=== PATIENT | female | born 1990 | race Caucasian/White ===

== ENCOUNTER 2017-11-16 02:54 | Emergency (ER) | payer OTHER ==
[~2017-11-16] VITALS: Ht 160 cm; Wt 61.2 kg
[~2017-11-16 02:54] MED LIST: SYN; SYNTHROID88 MCG
[2017-11-16] MEDS ORDERED: OMEPRAZOLE40 MG PO (13:26)
[2017-11-16] MEDS ORDERED: ZANTAC150 MG PO (13:26)
== END 2017-11-16 16:00 | disposition home or self-care (01) ==
LOC: ER 02:54
DX: K29.70 Gastritis, unspecified, without bleeding (principal)